=== PATIENT | female | born 1975 | race Caucasian/White ===

== ENCOUNTER 2020-06-28 13:35 | Emergency (ER) | payer BC, OTHER ==
--- NOTE | 2020-06-28 13:42 | EDM.PDOC ---
<Riccardo Lin - Last Filed: 06/28/20 13:53> ED HPI GENERAL MEDICAL PROBLEM - General Chief Complaint: Skin Complaint Stated Complaint: POSSIBLE SHINGLES Time Seen by Provider: 06/28/20 13:37 - Related Data Allergies Allergy/AdvReac Type Severity Reaction Status Date / Time No Known Allergies Allergy Verified 06/28/20 13:59 Home Meds: Home Meds Gabapentin [Neurontin] 100 mg PO BID PRN #20 cap 06/28/20 [Rx] valACYclovir [Valtrex] 1,000 mg PO TID 7 Days #21 tablet 06/28/20 [Rx] Course - Re-Assessments/Exams Free Text/Narrative Re-Assessment/Exam: 06/28/20 13:54 Attending physician note I have seen and evaluated the patient with the advanced practice provider. 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 Now she has scabbing eruptions on the forehead. ROS: Reviewed and agree Focused Exam: VITAL SIGNS: Reviewed. GENERAL: Awake, conversant, GCS 15, left occipital intermittent hemorrhagic Stephen crusted lesions HEAD: No visible signs of trauma EYES: Pupils equal, EOM grossly intact EARS: Hearing grossly intact. MOUTH: No visible lesions NECK: Appears supple CHEST: Breathing comfortably, clear lung sounds CARDIAC: Regular rhythm ABDOMEN: Soft, nontender, benign exam NEUROLOGIC EXAM: Awake and Alert, non-focal SKIN: No visible rashes EXTREMITIES: No deformities noted VASCULAR: Appears well perfused Assessment & Plan: Shingles, impetigo, chickenpox Most likely shingles given the history of shingles in the family. It did not systemic so unlikely to be chickenpox. No evidence of impetigo is localized and crusted. Pretty classic presentation. We will prescribe antivirals and anti- neuropathic pain medications. Departure - Departure Disposition: Home, Self-Care 01 Clinical Impression: Shingles Qualifiers: Herpes zoster complications: without complications Qualified Code(s): B02.9 - Zoster without complications - Discharge Information Prescriptions: Gabapentin [Neurontin] 100 mg PO BID PRN #20 cap PRN Reason: Pain valACYclovir [Valtrex] 1,000 mg PO TID 7 Days #21 tablet Instructions: Shingles, [id number] Referrals: Wendy Archer DO [Primary Care Provider] - Forms: ED Department Discharge Additional Instructions: The following information is given to patients seen in the emergency department who are being discharged to home. This information is to outline your options for follow-up care. We provide all patients seen in our emergency department with a follow-up referral. The need for follow-up, as well as the timing and circumstances, are variable depending upon the specifics of your emergency department visit. If you don't have a primary care physician on staff, we will provide you with a referral. We always advise you to contact your personal physician following an emergency department visit to inform them of the circumstance of the visit and for follow-up with them and/or the need for any referrals to a consulting specialist. The emergency department will also refer you to a specialist when appropriate. This referral assures that you have the opportunity for follow-up care with a specialist. All of these measure are taken in an effort to provide you with optimal care, which includes your follow-up. Under all circumstances we always encourage you to contact your private physician who remains a resource for coordinating your care. When calling for follow-up care, please make the office aware that this follow-up is from your recent emergency room visit. If for any reason you are refused follow-up, please contact the [facility] Emergency Department at and asked to speak to the emergency department charge nurse. [facility] [address] [place] [id number] [address] Thank you for choosing the [facility] emergency department in [place] for your medical needs today. It was a pleasure caring for you. Today you were seen in the emergency department for shingles rash. 1. Antiviral shorten the duration of viral shedding, stop the formation of new lesions, and reduce pain severity. Please take the valacyclovir as directed over the next 7 days. Make sure these lesions are not exposing others, as this is contagious. 2. You can alternate Tylenol and ibuprofen as needed for pain management. Gabapentin has been prescribed for neuropathic pain. You can take this twice daily; 1-2 tabs at night. 3. We encourage you to follow up with your primary care provider and/or recommended specialist in the next few days for re-evaluation and further care/management. If your symptoms should worsen, new symptoms develop or any of the signs and symptoms we discussed should arise please return to the emergency room or call 911 (if needed). <Areli Lyons E - Last Filed: 06/28/20 14:23> ED HPI GENERAL MEDICAL PROBLEM - General Source of Information: Reports: Patient History Limitations: Reports: No Limitations - History of Present Illness INITIAL COMMENTS - FREE TEXT/NARRATIVE: HISTORY AND PHYSICAL: History of present illness: Patient is a 45-year-old female who presents to the emergency room with complaints of a lesion noted to her left upper forehead and eyebrow. She states this started on Monday and initially thought it could have been a bug bite. She saw her primary care provider on Monday who recommended putting her on steroids but she declined at that time. She called a friend who is a pharmacist and encouraged her to come for evaluation as she thought it could be shingles. She has had some pain and fullness to the lymph nodes of the left neck and posterior ear. Reports she did have shingles when she was 25 years old. Patient denies any fever, chills, headache, change in vision, syncope or near syncope. Denies any chest pain, back pain, shortness of breath or cough. Denies any GI or symptoms. Review of systems: As per history of present illness and below otherwise all systems reviewed and negative. Past medical history: As per history of present illness and as reviewed below otherwise noncontributory. Surgical history: As per history of present illness and as reviewed below otherwise noncontributory. Social history: See social history for further information Family history: As per history of present illness and as reviewed below otherwise noncontributory. Physical exam: General: Well developed and well nourished 5-year-old female. Alert and orientated x 3. Nontoxic in appearance and in no acute distress. Vital signs are stable and have been reviewed by me. Nursing notes were reviewed. HEENT: Atraumatic, normocephalic, pupils equal and reactive bilaterally, negative for conjunctival pallor or scleral icterus, mucous membranes moist, trachea midline. Crusted scabbed type lesion to the left upper eyebrow and forehead. She does have a vesicular type lesion to the scalp. None near the eye or upper/lower eyelid. No drooling or trismus noted. No meningeal signs. No hot potato voice noted. Lungs: Clear to auscultation, breath sounds equal bilaterally, chest nontender. Normal work of breathing, no accessory muscles used. Heart: S1S2, regular rate and rhythm without overt murmur Abdomen: Soft, nondistended, nontender. Skin: SEE HEENT otherwise remaining skin is intact, warm, dry. No additional lesions or rashes noted (other than forehead/scalp). Hematologic: No petechiae or purpra. Mucosa appropriate color and normal nail bed color and refill. Extremities: Atraumatic, moves all extremities per self without difficulty or deficits, negative for cords or calf pain. Neurovascular unremarkable. Neuro: Awake, alert, oriented. Cranial nerves II through XII unremarkable. Cerebellum unremarkable. Motor and sensory unremarkable throughout. Exam nonfocal. Psychiatric: Mood and affect are appropriate. Normal thought process. Answering questions appropriately. Notes: I have spoken with the patient/caregiver and discussed today's findings, in addition to providing specific details for plan of care. Reassessment at the time of disposition demonstrates that the patient is in no acute distress. The patient has remained stable throughout the entire ED visit and is without objective evidence for acute process requiring urgent intervention or hospitalization. The patient is stable for discharge, counseling was provided and we discussed in great detail signs and symptoms that would prompt them to return to the Emergency Department. Medication, follow up and supportive care measures were reviewed and discussed. Voices understanding and is agreeable to plan of care. Denies any further questions or concerns at this time. Diagnostics: None Therapeutics: Valtrex Prescription: Valtrex, Gabapentin Impression: Shingles Plan: 1. Antiviral shorten the duration of viral shedding, stop the formation of new lesions, and reduce pain severity. Please take the valacyclovir as directed over the next 7 days. Make sure these lesions are not exposing others, as this is contagious. 2. You can alternate Tylenol and ibuprofen as needed for pain management. Gabapentin has been prescribed for neuropathic pain. You can take this twice daily; 1-2 tabs at night. 3. We encourage you to follow up with your primary care provider and/or recommended specialist in the next few days for re-evaluation and further care/management. If your symptoms should worsen, new symptoms develop or any of the signs and symptoms we discussed should arise please return to the emergency room or call 911 (if needed). Definitive disposition and diagnosis as appropriate pending reevaluation and review of above. Past Medical History HEENT History: Reports: None Cardiovascular History: Reports: None Respiratory History: Reports: None Gastrointestinal History: Reports: None Musculoskeletal History: Reports: None Neurological History: Reports: None Psychiatric History: Reports: None Endocrine/Metabolic History: Reports: None Hematologic History: Reports: None Immunologic History: Reports: None Oncologic (Cancer) History: Reports: None Dermatologic History: Reports: None - Past Surgical History Head Surgeries/Procedures: Reports: None Female Surgical History: Reports: Hysterectomy, Oophorectomy Social & Family History - Family History Family Medical History: Noncontributory ED ROS GENERAL - Review of Systems Review Of Systems: Comprehensive ROS is negative, except as noted in HPI. ED EXAM, SKIN/RASH Exam: See Below (See dictation) Course - Vital Signs Last Recorded V/S: Last Vital Signs Temp 97.1 F 06/28/20 14:00 Pulse 67 06/28/20 14:00 Resp 16 06/28/20 14:00 BP 127/56 L 06/28/20 14:00 Pulse Ox 99 06/28/20 14:00 - Orders/Labs/Meds Meds: Medications Discontinued Medications Generic Name Dose Route Start Last Admin Trade Name Freq PRN Reason Stop Dose Admin Valacyclovir HCl 1,000 mg 06/28/20 13:52 06/28/20 14:14 Valtrex PO 06/28/20 13:53 1,000 mg ONETIME ONE Administration Departure - Departure Time of Disposition: 14:02 Sepsis Event Note (ED) - Focused Exam Vital Signs: Vital Signs Temp Pulse Resp BP Pulse Ox 06/28/20 14:00 97.1 F 67 16 127/56 L 99
[2020-06-28] MEDS ORDERED: valACYclovir 500 MG Tab PO ONE (13:52)
[2020-06-28 14:26] VITALS: BP 127/56; PULSE 67
== END 2020-06-28 14:24 | disposition home or self-care (01) ==
LOC: MW.ED 13:35
DX: B02.9 Zoster without complications (principal)
CPT/HCPCS: 99282; A9270

== ENCOUNTER 2021-12-28 17:41 | Emergency (ER) | payer OTHER ==
[2021-12-28 19:14] LABS: BLOOD UREA NITROGEN,BUN 8 mg/dL (7.0-18.0); CARBON DIOXIDE,CO2 25.1 mmol/L (21.0-32.0); CHLORIDE,CL 106 mmol/L (98-107); GLUCOSE RANDOM 89 mg/dL (74-106); LIPASE 62 U/L (73-393); POTASSIUM,K 3.8 mmol/L (3.5-5.1); SODIUM,NA 140 mmol/L (136-145)
[2021-12-28 19:39] VITALS: BP 104/66; PULSE 56
== END 2021-12-28 19:34 | disposition home or self-care (01) ==
LOC: MW.ED 17:41
DX: S29.011A Strain of muscle and tendon of front wall of thorax, initial encounter (principal); X50.0XXA Overexertion from strenuous movement or load, initial encounter
CPT/HCPCS: 36415; 71046; 71046-26; 80053; 83690; 84484; 85025; 93005; 99285-25

== ENCOUNTER 2023-05-28 21:01 | Emergency (ER) | payer OTHER ==
[2023-05-28 22:30] VITALS: PULSE 60
[2023-05-28] MEDS ORDERED: Ibuprofen 600 MG Tab PO ONE (22:56)
[2023-05-28 23:16] VITALS: BP 105/33
== END 2023-05-28 23:16 | disposition home or self-care (01) ==
LOC: MW.ED 21:01
DX: S20.212A Contusion of left front wall of thorax, initial encounter (principal); Z86.16 Personal history of COVID-19; Z90.710 Acquired absence of both cervix and uterus; W22.8XXA Striking against or struck by other objects, initial encounter
CPT/HCPCS: 71101; 99284; A9270; 99282